=== PATIENT | female | born 1975 | race Asian ===

== ENCOUNTER 2017-02-13 14:40 | Emergency (ER) | payer BC ==
[2017-02-13 15:10] VITALS: BP 100/54
== END 2017-02-13 16:28 | disposition left against medical advice (07) ==
LOC: UCEAST 14:40
DX: R05 Cough (principal); R07.81 Pleurodynia; Z53.21 Procedure and treatment not carried out due to patient leaving prior to being seen by health care provider

== ENCOUNTER 2019-07-23 13:27 | Emergency (ER) | payer OTHER ==
--- OUTSIDE RECORDS SUMMARY | 2019-07-23 13:33 | XMS REPORT ---
:1975 Author Name sound, ultra Care Team Providers Name Role Phone sound, ultra Unavailable Unavailable PROBLEMS Type Condition ICD9-CM Code [id number] Code Onset Condition SNOMED Code Dates Status Problem Other abnormal R92.8 Active 608018873 and inconclusive findings on diagnostic imaging of breast Problem Abnormal findings R93.89 Active 524262973 on diagnostic imaging of other specified body structures Problem Other specified N94.89 Active 244927530 conditions associated with female genital organs and menstrual cycle Problem Subserosal D25.2 Active 14712491 leiomyoma of uterus ALLERGIES No Information ENCOUNTERS Encounter Location Date Diagnosis [facility] 103 May, [place] [id number] [facility] May, [place] [id number] [facility] May, Encounter for OBGYN [facility], gynecological examination [place] [id number] (general) (routine) without abnormal findings Z01.419 ; Subserosal leiomyoma of uterus D25.2 and Encounter for screening mammogram for malignant neoplasm of breast Z12.31 [facility] 103 May, Subserosal leiomyoma of OBGYN [facility], uterus D25.2 and Abnormal [place] [id number] findings on diagnostic imaging of other specified body structures R93.89 [facility] OBGYN 103 Apr, Encounter for OBGYN [facility], gynecological examination [place] [id number] (general) (routine) without abnormal findings Z01.419 ; Subserosal leiomyoma of uterus D25.2 ; Encounter for screening mammogram for malignant neoplasm of breast Z12.31 and Abnormal findings on diagnostic imaging of other specified body structures R93.89 [facility] 103 Apr, Subserosal leiomyoma of [facility], uterus D25.2 and Other [place] [id number] specified conditions associated with female genital organs and menstrual cycle N94.89 [facility] 103 October, Subserosal leiomyoma of [facility], uterus D25.2 and Other [place] [id number] specified noninflammatory disorders of uterus N85.8 [facility] 103 October, Subserosal leiomyoma of [facility], uterus D25.2 and Other [place] [id number] specified conditions associated with female genital organs and menstrual cycle N94.89 [facility] 103 Sep, [place], [place] [id number] [facility] 103 Sep, [place], [place] [id number] [facility] 103 Jun, Subserosal leiomyoma of [facility], uterus D25.2 and Other [place] [id number] specified noninflammatory disorders of uterus N85.8 [facility] 103 Jun, Other specified conditions [facility], associated with female [place] [id number] genital organs and menstrual cycle N94.89 ; Leiomyoma of uterus, unspecified D25.9 and Abnormal findings on diagnostic imaging of other specified body structures R93.8 [facility] 103 Jun, Other abnormal and [facility], inconclusive findings on [place] [id number] diagnostic imaging of breast R92.8 [facility] 103 May, [place], [place] [id number] [facility] 103 Apr, Subserosal leiomyoma of OBN [facility], uterus D25.2 and Other [place] [id number] specified noninflammatory disorders of uterus N85.8 [facility] 103 Apr, Other specified conditions [facility], associated with female [place] [id number] genital organs and menstrual cycle N94.[address] Apr, Encounter for OBG[address] [place], gynecological examination [place] [id number] (general) (routine) without abnormal findings Z01.419 ; Encounter for screening mammogram for malignant neoplasm of breast Z12.31 and Other specified conditions associated with female genital organs and menstrual cycle N94.[address] Mar, Encounter for [facility] [address] [place], gynecological examination [place] [id number] (general) (routine) without abnormal findings Z01.419 and Encounter for screening mammogram for malignant neoplasm of breast Z12.31 [facility] 103 Mar, [place] [id number] [address] Mar, [facility] Road [address] [place] [id number] [facility] 103 Feb, Encounter for screening [facility], mammogram for malignant [place] [id number] neoplasm of breast Z12.[address] Feb, ROUTINE CENTRAL AISLE CASHIER EXAMINATION [facility] [address] [place] [address], V72.31 ; SCREEN [place]AMMOGRAM [place] [id number] NEC V76.12 and PAP SMEAR W/O CENTRAL AISLE CASHIER EXAM V76.2 [facility] 103 Jan, [place] [id number] [facility] Jul, [place] [id number] [facility] 103 Jul, [place] [id number] [facility] 103 Jul, [place] [id number] [facility] 103 Jun, [place] [id number] [facility] 103 Jun, [place] [id number] [facility] 103 May, US-SCREEN ANOMALIES V28.3 [place] [id number] [facility] 103 May, [place] [id number] [facility] 103 Apr, [place] [id number] [facility] 103 Mar, [facility] NOS [facility], V28.9 [place] [id number] [facility] 103 Mar, Atypical glandular cells [facility], NOS 795.00 [place] [id number] [facility] 103 Mar, OBG[place] [id number] [facility] 103 Mar, SCREENING NOS OBGYN [facility], V28.9 [place] [id number] [facility] 103 Mar, Amenorrhea 626.0 and OBGYN [facility], TEST-POSITIVE [place] [id number] V72.[address] Feb, Amenorrhea 626.0 ; OBGYN [address] [place], TEST-POSITIVE [place] [id number] V72.42 and GYNECOLOGIC EXAMINATION V72.31 IMMUNIZATIONS No Known Immunizations SOCIAL HISTORY Never Assessed REASON FOR REFERRAL FUNCTIONAL STATUS PLAN OF CARE VITAL SIGNS MEDICATIONS Unknown Medications PROCEDURES Procedure Date Ordered Result Body Site TRANSVAGINAL US, NON-OB May 09, 2019 RESULTS Name Result Date Reference Range Ultrasound : Pelvis REASON FOR VISIT US for annual visit Insurance Providers [facility] Health Member Patient Patient Patient Patient Patient Subscriber Subscriber Subscriber Group Insurance Plan Plan Plan Plan ID Relationship Address Phone Name Date of ID Name Date of No Type Insurance Insurance Insurance Coverage to Subscriber Address Phone Name Dates [employer] [phone] [employer] self Feixue [id number] Blue [id number] 89 Blue Gu 4 Cross/Blue [place] Cross/Blue Shield [address] Shield [employer] [phone] [employer] self [place] [id number] Gu -[phone] [place] [phone] [employer] [phone] [employer] self [place]ixue [id number] Blue [id number] 89 Blue Gu 4 Cross/Blue [place] Cross/Blue Shield [id number] Shield MEDICAL (GENERAL) HISTORY Type Description Date Medical History Ezcema Medical History asthma Surgical History appendectomy 2014 Surgical History dilation and curettage for endometrial polyp 2014 Hospitalization History childbirth 2014
--- OUTSIDE RECORDS SUMMARY | 2019-07-23 13:33 | XMS REPORT ---
:1975 Author Organization [facility]. [facility] Address [address] [place] [address] Care Team Providers Name Role Phone Venice Morrell Unavailable Unavailable PROBLEMS Type Condition ICD9-CM Code DKA32-FO Code Onset Condition SNOMED Code Dates Status Problem Other abnormal R92.8 Active 588177134 and inconclusive findings on diagnostic imaging of breast Problem Abnormal findings R93.89 Active 267659893 on diagnostic imaging of other specified body structures Problem Other specified N94.89 Active 186273732 conditions associated with female genital organs and menstrual cycle Problem Subserosal D25.2 Active 84508654 leiomyoma of uterus ALLERGIES No Known Allergies ENCOUNTERS Encounter Location Date Diagnosis [facility] OBGYN 103 May, [place], [place] [id number] [facility] OBGYN 103 May, [place], [place] [id number] [facility] 103 May, [facility] [place] [id number] (general) (routine) without abnormal findings Z01.419 ; Subserosal leiomyoma of uterus D25.2 and Encounter for screening mammogram for malignant neoplasm of breast Z12.31 [facility] OBGYN 103 04 May, 2019 Subserosal leiomyoma of OBGYN [facility], uterus D25.2 and Abnormal [place] [id number] findings on diagnostic imaging of other specified body structures R93.89 [facility] OBGYN 103 Apr, Encounter for [facility], gynecological examination [place] [id number] (general) (routine) without abnormal findings Z01.419 ; Subserosal leiomyoma of uterus D25.2 ; Encounter for screening mammogram for malignant neoplasm of breast Z12.31 and Abnormal findings on diagnostic imaging of other specified body structures R93.89 [facility] 103 Apr, [facility], uterus D25.2 and Other [place] [id number] specified conditions associated with female genital organs and menstrual cycle N94.89 [facility] 103 October, [facility], uterus D25.2 and Other [place] [id number] specified noninflammatory disorders of uterus N85.8 [place] [facility] 103 October, Subserosal leiomyoma of [facility], uterus D25.2 and Other [place] [id number] specified conditions associated with female genital organs and menstrual cycle N94.89 [facility] 103 Sep, [place], [place] [id number] [facility] 103 Sep, [place], [place] [id number] [facility] 103 Jun, Subserosal leiomyoma of [facility], uterus D25.2 and Other [place] [id number] specified noninflammatory disorders of uterus N85.8 [facility] 103 Jun, Other specified conditions [facility], associated with female [place] [id number] genital organs and menstrual cycle N94.89 ; Leiomyoma of uterus, unspecified D25.9 and Abnormal findings on diagnostic imaging of other specified body structures R93.8 [facility] 103 Jun, Other abnormal and [facility], inconclusive findings [place] [id number] diagnostic imaging of breast R92.8 [facility] 103 May, OBGYN [place] [id number] [facility] 103 Apr, [facility]serosal [facility], uterus D25.2 and Other [place] [id number] specified noninflammatory disorders of uterus N85.8 [place] [facility] 103 Apr, Other specified conditions OBN [facility], associated with female [place] [id number] genital organs and menstrual cycle N94.[address] Apr, Encounter for OBGY [address] [place], gynecological examination [place] [id number] (general) (routine) without abnormal findings Z01.419 ; Encounter for screening mammogram for malignant neoplasm of breast Z12.31 and Other specified conditions associated with female genital organs and menstrual cycle N94.[address] Mar, Encounter for OBGYN [address] [place] [address], gynecological examination [place] [id number] (general) (routine) without abnormal findings Z01.419 and Encounter for screening mammogram for malignant neoplasm of breast Z12.31 [facility] 103 Mar, [place] [id number] [address] Mar, OBGY Road [address] [place] [id number] [facility] 103 Feb, Encounter for screening OBN [facility], mammogram for malignant [place] [id number] neoplasm of breast Z12.[address] Feb, ROUTINE BPM SOLUTION ARCHITECT EXAMINATION [facility] Road [address] [place] [address], V72.31 ; SCREEN MAMMOGRAM [place] [id number] NEC V76.12 and PAP SMEAR W/O BPM SOLUTION ARCHITECT EXAM V76.2 [facility] OBGYN 103 Jan, [place] [id number] [facility] 103 Jul, [place] [id number] [facility] 103 Jul, OBG[place] [id number] [facility] 103 Jul, OBG[place] [id number] [facility] 103 Jun, OBG[place], [place] [id number] [facility] 103 Jun, OBG[place], [place] [id number] [facility] 103 May, US-SCREEN ANOMALIES V28.3 [place] [id number] [facility] 103 May, OBG[place] [id number] [facility] 103 Apr, OBG[place], [place] [id number] [facility] 103 Mar, SCREENING NOS OBGYN [facility], V28.9 [place] [id number] [facility] 103 Mar, Atypical glandular cells [facility], NOS 795.00 [place] [id number] [facility] 103 Mar, OBG[place], [place] [id number] [facility] 103 Mar, SCREENING NOS OBGYN [facility], V28.9 [place] [id number] [facility] 103 Mar, Amenorrhea 626.0 and OBGYN [facility], TEST-POSITIVE [place] [id number] V72.42 [place] [facility] [address] [place] [address] Feb, Amenorrhea 626.0 ; [facility] [address] [place], TEST-POSITIVE [place] [id number] V72.42 and GYNECOLOGIC EXAMINATION V72.31 IMMUNIZATIONS No Known Immunizations SOCIAL HISTORY Never Assessed REASON FOR REFERRAL FUNCTIONAL STATUS PLAN OF CARE Activity Details Follow Up 1 year annual w/US, schedule Mammogram pt want's now Reason: VITAL SIGNS Height 62 in 2019-05-09 Weight 116 lbs 2019-05-09 BMI 21.21 kg/m2 2019-05-09 Blood pressure systolic 90 mm Hg 2019-05-09 Blood pressure diastolic 60 mm Hg 2019-05-09 MEDICATIONS Medication Instructions Dosage Frequency Start End Date Duration Status Date Symbicort 160 inhaled 2 times a 2 puff(s) 12h Active mcg-4.5 mcg/inh day PROCEDURES No Known procedures RESULTS No Results REASON FOR VISIT annual visit and US f/u Insurance Providers [facility] Member Patient Patient Patient Patient Patient Subscriber Subscriber Subscriber Group Insurance Plan Plan Plan Plan ID Relationship Address Phone Name Date of ID Name Date of No Type Insurance Insurance Insurance Coverage to Subscriber Address Phone Name Dates [facility] [phone] [employer] self [employer]ue [id number] Blue [id number] 89 Blue Gu 4 Cross/Blue [place] Cross/Blue Shield [address] Shield [facility] [phone] [employer] self Feixue [id number] Blue [id number] 89 Blue Gu 4 Cross/Blue [place] Cross/Blue Shield [address] Shield [employer] [phone] [employer] self [place]ixue [id number] Gu [phone] [facility] 0003 [phone] MEDICAL (GENERAL) HISTORY Type Description Date Medical History Ezcema Medical History asthma Surgical History appendectomy 2013 Surgical History dilation and curettage for endometrial polyp 2014 Hospitalization History childbirth 2014
[2019-07-23 13:44] VITALS: BP 111/62
[2019-07-23 14:16] LABS: Influenza A Molecular Negative (Negative); Influenza B Molecular Negative (Negative)
--- NOTE | 2019-07-23 15:34 | UC ---
Respiratory Complaint HPI - HPI Summary HPI Summary: Patient is a 44yo female presenting with nasal congestion and nonproductive cough x3 days. Denies sob and wheezing. Denies sore throat. Denies fever and chills. Denies body aches. Denies n/v. States cough is worse at night. Patient "concerned about her lungs" because she was diagnosed with asthma in the past. - History of Current Complaint Chief Complaint: UCRespiratory Stated Complaint: COUGH Hx Obtained From: Patient Hx Last Menstrual Period: Pain Intensity: 0 Pain Scale Used: 0-10 Numeric - Allergies/Home Medications Allergies/Adverse Reactions: Allergies Allergy/AdvReac Type Severity Reaction Status Date / Time No Known Allergies Allergy Verified 07/23/19 13:45 Home Medications: Home Medications D-Methorphan/PE/Acetaminophen [Vicks Dayquil Liquicaps] 1 each PO Q6H 07/23/19 [ History Confirmed 07/23/19] PMH/Surg Hx/FS Hx/Imm Hx Respiratory History: Asthma - Surgical History Surgical History: Yes Surgery Procedure, Year, and Place: - Family History Known Family History: Positive: Non-Contributory - Social History Alcohol Use: None Substance Use Type: None Smoking Status (MU): Never Smoked Tobacco Review of Systems All Other Systems Reviewed And Are Negative: Yes Constitutional: Positive: Negative ENT: Positive: Sinus Congestion Respiratory: Positive: Cough. Negative: Shortness Of Breath Cardiovascular: Positive: Negative Gastrointestinal: Positive: Negative Musculoskeletal: Positive: Negative Neurological/Mental Status: Positive: Negative Physical Exam - Summary Physical Exam Summary: Vital Signs Reviewed: Yes A+Ox3, no distress, well-appearing Eyes: Conjunctiva Clear ENT: Hearing grossly normal, TM x 2 clear, +PND, moist, uvula midline, no exudate, no erythema Neck: Positive: Supple Respiratory: Positive: No respiratory distress, No accessory muscle use + CTA throughout no w/r Cardiovascular: RRR nl s1, s2 no m/r Musculoskeletal Exam: CHAN x 4 without difficulty Neurological: Positive: Alert Psychological: Positive: age appropriate behavior Skin: Positive: no rash, no ecchymosis Vital Signs: Initial Vital Signs Temp 99.9 F 07/23/19 13:41 Pulse 74 07/23/19 13:41 Resp 16 07/23/19 13:41 BP 111/62 07/23/19 13:41 Pulse Ox 100 02/17/20 13:41 Lab Results 07/23/19 Range/Units 14:04 Influenza A (Rapid) Negative (Negative) Influenza B (Rapid) Negative (Negative) Respiratory Course/Dx - Course Course Of Treatment: Negative rapid flu. Discussed viral illness with patient and instructed to continue with symptomatic treatment, including use of inhaler and tesslon perles. Instructed to follow up with pcp if symptoms worsen or persist. Patient voiced understanding and agreed with treatment plan. - Differential Dx/Diagnosis Differential Diagnosis/HQI/PQRI: Asthma, Bronchitis Provider Diagnosis: Acute bronchitis, URI, acute Discharge ED - Sign-Out/Discharge Documenting (check all that apply): Patient Departure All imaging exams completed and their final reports reviewed: No Studies - Discharge Plan Condition: Stable Disposition: HOME Prescriptions: Benzonatate CAP* [Tessalon 100 MG CAP*] 100 mg PO TID PRN #15 cap PRN Reason: Cough Patient Education Materials: Upper Respiratory Infection (ED), Acute Bronchitis (ED) Forms: *Work Release Referrals: Laz Rios MD [Primary Care Provider] - If Needed Additional Instructions: You may continue to take over the counter cough and cold medications for your cold symptoms. Use your inhaler as needed for shortness of breath. Take the tesslon perles as prescribed for cough relief. Get plenty of rest and increase your fluid intake. Follow up with your primary care provider if symptoms do not improve within 10 days. - Billing Disposition and Condition Condition: STABLE Disposition: Home
== END 2019-07-23 15:15 | disposition home or self-care (01) ==
LOC: UCEAST 13:27
DX: J06.9 Acute upper respiratory infection, unspecified (principal); J45.909 Unspecified asthma, uncomplicated
CPT/HCPCS: 99212; G0463